=== PATIENT | male | born 1965 | race African-American/Black ===

== ENCOUNTER 2023-12-03 10:00 | Emergency (ER) | payer SELFPAY ==
[2023-12-03 10:24] VITALS: RESP 18; BMI 51.5
[2023-12-03 11:21] LABS: BASO % 0.6 % (0-2.0); EOS % 2.6 % (0-4.5); HEMATOCRIT 43.7 % (35.4-49); HEMOGLOBIN 14.3 GM/dL (11.7-16.9); LYMPH % 51.4 % (8-40); MCH 26.2 pg (25.7-33.7); MCHC 32.8 g/dl (32.0-35.9); MEAN CELL VOLUME 79.9 fl (80-96); MEAN PLT VOLUME 8.4 fl (7.5-11.1); MONO % 8.4 % (3.8-10.2); PLATELET COUNT 231 10^3/uL (134-434); RBC 5.48 M/mm3 (4.00-5.60); WHITE BLOOD COUNT 5.7 K/mm3 (4.0-10.0)
[2023-12-03 11:48] LABS: POTASSIUM 4.4 mmol/L (3.5-5.1)
[2023-12-03 11:51] LABS: ALBUMIN 3.7 g/dl (3.4-5.0); BLOOD UREA NITROGEN 12.2 mg/dL (7-18); CALCIUM 9.3 mg/dL (8.5-10.1)
[2023-12-03] MEDS ORDERED: LIDOCAINE 5% TOPICAL PATCH ONE (11:51)
[2023-12-03] MEDS: LIDOCAINE 5% TOPICAL PATCH TP ONE (11:52)
[2023-12-03] MEDS: KETOROLAC TROMETHAMINE 15 MG/ML VIAL IVPUSH ONE ×2 (11:52→20:55)
[2023-12-03] MEDS ORDERED: KETOROLAC TROMETHAMINE 15 MG/ML VIAL ONE ×2 (11:52→20:49)
[2023-12-03 11:54] LABS: CREATININE 0.9 mg/dL (0.55-1.3)
[2023-12-03 11:55] LABS: BILIRUBIN,TOTAL 1.7 mg/dL (0.2-1)
[2023-12-03 11:56] LABS: TOT PROT 7.8 g/dl (6.4-8.2)
[2023-12-03 11:59] LABS: N-TERMINAL BNP 28.5 pg/ml (5-125)
[2023-12-03 16:20] LABS: PH,URINE 7.5 (5.0-8.0); URINE APPEARANCE CLEAR; URINE BILIRUBIN NEGATIVE (NEGATIVE); URINE COLOR YELLOW; URINE GLUCOSE (UA) NEGATIVE (NEGATIVE); URINE KETONE NEGATIVE (NEGATIVE); URINE LEUK ESTERASE NEGATIVE (NEGATIVE); URINE NITRITE NEGATIVE (NEGATIVE); URINE PROTEIN NEGATIVE (NEGATIVE); URINE UROBILINOGEN 0.2 mg/dL (0.2-1.0)
[2023-12-03] MEDS ORDERED: LIDOCAINE PATCH REMOVAL MC ONE (22:00)
[2023-12-03 23:05] VITALS: BP 136/82; PULSE 76; TEMP 98
== END 2023-12-03 23:05 | disposition short-term general hospital (02) ==
LOC: JER 10:00
PROC: 3E0333Z Introduction of Anti-inflammatory into Peripheral Vein, Percutaneous Approach (ICD-10-PCS; principal; 2023-12-03)
PROC: 3E0333Z Introduction of Anti-inflammatory into Peripheral Vein, Percutaneous Approach (ICD-10-PCS; 2023-12-03)
DX: R07.2 Precordial pain (principal); M54.9 Dorsalgia, unspecified; T84.296A Other mechanical complication of internal fixation device of vertebrae, initial encounter; S32.009A Unspecified fracture of unspecified lumbar vertebra, initial encounter for closed fracture; E80.7 Disorder of bilirubin metabolism, unspecified; Z20.822 Contact with and (suspected) exposure to COVID-19
CPT/HCPCS: 0241U-QW; 36415; 71046-TC-FY; 71275-TC; 74174-TC; 80053; 81003; 83690; 83880; 84484; 85025; 85379; 93005; 93010; 99285-25; Q9967

== ENCOUNTER 2024-07-07 11:52 | Emergency (ER) | payer OTHER ==
[2024-07-07 12:02] VITALS: BP 152/88; PULSE 93; RESP 18; TEMP 98.3; BMI 54.3
[2024-07-07] MEDS ORDERED: ACETAMINOPHEN 500 MG TABLET (FP) ONE (13:36)
[2024-07-07] MEDS ORDERED: DIPHTH,PERTUSS(ACELL),TET 0.5 ML DISP.SYRIN IM ONE (13:36)
[2024-07-07] MEDS: ACETAMINOPHEN 500 MG TABLET (FP) PO ONE (13:41)
[2024-07-07] MEDS: DIPHTH,PERTUSS(ACELL),TET 0.5 ML DISP.SYRIN IM ONE (13:42)
[2024-07-07] MEDS ORDERED: IBUPROFEN 600 MG TABLET (FP) PO ONE (15:08)
[2024-07-07] MEDS: IBUPROFEN 600 MG TABLET (FP) PO ONE (15:11)
[2024-07-07] MEDS ORDERED: AMOX TR/POT CLAV 500MG/125MG TABLETS (FP) ONE (16:14)
[2024-07-07] MEDS: AMOX TR/POT CLAV 500MG/125MG TABLETS (FP) PO ONE (16:21)
== END 2024-07-07 19:06 | disposition short-term general hospital (02) ==
LOC: JER 11:52
PROC: 0HCGXZZ Extirpation of Matter from Left Hand Skin, External Approach (ICD-10-PCS; principal; 2024-07-07)
PROC: 3E0234Z Introduction of Serum, Toxoid and Vaccine into Muscle, Percutaneous Approach (ICD-10-PCS; 2024-07-07)
DX: S61.412A Laceration without foreign body of left hand, initial encounter (principal); W23.0XXA Caught, crushed, jammed, or pinched between moving objects, initial encounter; Z23 Encounter for immunization
CPT/HCPCS: 12002-25; 73130-TC-LT-FY; 90471; 90715; 99284-25